=== PATIENT | female | born 1965 | race Caucasian/White ===

== ENCOUNTER 2018-01-09 20:39 | Emergency (ER) | payer OTHER ==
[~2018-01-09] VITALS: Ht 157.5 cm; Wt 60.0 kg
[~2018-01-09 20:39] MED LIST: BUPR150ER PO; CYCL10 PO; FAMO20 PO; HYDACE5 PO; IBUP800 PO; LORA.5 PO; MELO7.5 PO; NAPR550 PO; Nitrostat0.4 MG SL; TRAM50 PO; ZOLOFT PO
[2018-01-09] MEDS ORDERED: SERT100 PO (21:08)
== END 2018-01-09 21:56 | disposition home or self-care (01) ==
LOC: ER 20:39
DX: R07.81 Pleurodynia (principal); Z88.1 Allergy status to other antibiotic agents; Z88.8 Allergy status to other drugs, medicaments and biological substances; Z79.899 Other long term (current) drug therapy; F32.9 Major depressive disorder, single episode, unspecified; Z87.891 Personal history of nicotine dependence
CPT/HCPCS: 96372; 99283; J1885

== ENCOUNTER 2018-12-20 08:35 | Day surgery (SDC) | payer OTHER ==
[~2018-12-20] VITALS: Ht 160 cm; Wt 62.3 kg
[~2018-12-20 08:35] MED LIST changes: +SERT100 PO
[2018-12-20] MEDS ORDERED: Amitriptyline100 MG PO (09:48)
--- NOTE | 2018-12-20 10:23 | NUR ---
12/20/18 1023 Alex James LATE [id number] DR GOODWIN IN ROOM AND SITE CHECK DONE. DR GOODWIN INJECTED 10 ML OF BUPIVACAINE WITH EPI 0.5% 1;200,000. PATIENT TOLERATED PROCEDURE WELL. VSS
--- NOTE | 2018-12-20 10:51 | NUR ---
12/20/18 1051 Carlee Carlton SITTING IN RECLINER W/S.O. AT BEDSIDE. PT DRINKING COFFE AND EAQTING COOKIES. HAND UP ON PILLOW AND ICE PACK ON. DSG C/D/I DENIED PAIN AND NAUSEA
== END 2018-12-20 11:15 | disposition home or self-care (01) ==
LOC: ORSCSDS 08:35
PROVIDERS: Orthopaedic Surgery
PROC: 01N54ZZ Release Median Nerve, Percutaneous Endoscopic Approach (ICD-10-PCS; principal; 2018-12-20 09:45)
DX: G56.02 Carpal tunnel syndrome, left upper limb (principal); Z87.891 Personal history of nicotine dependence; Z79.899 Other long term (current) drug therapy
CPT/HCPCS: J0690; J2250; J3010; J7120

== ENCOUNTER 2025-01-08 05:44 | Day surgery (SDC) | payer OTHER ==
[~2025-01-08] VITALS: Ht 157.5 cm; Wt 70.7 kg
[2025-01-08] VITALS (15 sets, daily range): BP systolic 107–134; BP diastolic 66–95
[~2025-01-08 05:44] MED LIST changes: +AMIT50 PO
[2025-01-08] MEDS ORDERED: Lactated Ringer's 1,000 ML IV SCH (06:20)
[2025-01-08] MEDS ORDERED: CeFAZolin Sodium 2,000 MG in NS 100 ML IV SCH (06:20)
[2025-01-08] MEDS ORDERED: EUTHYROX88 MCG (06:40)
[2025-01-08] MEDS ORDERED: Tranexamic Acid 100 ML IV ONE (07:00)
[2025-01-08] MEDS ORDERED: Midazolam HCl 1MG / ML 2ML Vial ONE (07:02)
[2025-01-08] MEDS ORDERED: FentaNYL Citrate 50 MCG/ML 2 ML Injection ONE (07:02)
[2025-01-08] MEDS ORDERED: propofoL 20 ML IV ONE (07:03)
[2025-01-08] MEDS ORDERED: CeFAZolin Sodium 2,000 MG VIAL ONE (07:04)
[2025-01-08] MEDS ORDERED: Bupivacaine HCl 0.25% 30 ML Injection ONE ×2 (07:06)
[2025-01-08] MEDS ORDERED: EpiNEPhrine 1 MG/1 ML 1ML Vial ONE (07:07)
[2025-01-08] MEDS ORDERED: Bupivacaine 0.5% HCl 5 MG/ML 30MLVIAL ONE (07:17)
[2025-01-08] MEDS ORDERED: EPINEPhrine HCl 1 MG / ML 30ML Vial ONE (07:17)
--- NOTE | 2025-01-08 07:17 | NUR ---
Ambulatory in Day SurgeryPre-Op teaching done. Pt verbalizes understanding. History, Chart, Medications and Allergies reviewed before start of procedure.Patient confirms NPO status and agrees with scheduled surgery. Patient States Post-Procedure ride home has been arranged. Patient reports completing Chlorhexadine shower X2 prior to admission to hospital.
[2025-01-08] MEDS ORDERED: Rocuronium Bromide 10 MG/ML 5ML Injection IV ONE (07:35)
--- NOTE | 2025-01-08 07:38 | NUR ---
0725 TIME OUT FOR LEFT INTERSCALENE BLOCK W/ DR. OH. MB69=75-32% ON RA HR=90-93 BPM PT TOLERATED PROCEDURE WELL
[2025-01-08] MEDS ORDERED: Ondansetron HCl 2 MG / ML 2ML Vial ONE (07:53)
[2025-01-08] MEDS ORDERED: Dexamethasone Sod Phos 10 MG/ML 1ML VIAL ONE (07:53)
[2025-01-08] MEDS ORDERED: Tranexamic Acid 1000 MG/10 ML 10ML Vial (SDV) XX ONE (07:55)
[2025-01-08] MEDS ORDERED: Metoclopramide HCl 5MG / ML 2ML Vial IV PRN (08:20)
[2025-01-08] MEDS ORDERED: FentaNYL Citrate 50 MCG/ML 2 ML Injection IV PRN ×2 (08:20)
[2025-01-08] MEDS ORDERED: HYDROmorphone HCl/Pf 1MG SYR ONE (08:24)
[2025-01-08] MEDS ORDERED: Ketorolac Tromethamine 30mg Vial IV PRN (08:35)
[2025-01-08] MEDS ORDERED: OxyCODONE HCL 5 MG TAB PO PRN (10:05)
[2025-01-08] MEDS ORDERED: Metoclopramide HCl 5MG / ML 2ML Vial ONE (10:47)
[2025-01-08] MEDS ORDERED: Ketorolac Tromethamine 30mg Vial ONE (11:08)
--- NOTE | 2025-01-08 11:12 | NUR ---
PT PRESENTS VERY DROWSY, ROUSES TO VERBAL STIMULI. POLAR PACK TO LEFT SHOULDER. ABLE TO MOVE HER FINGERS, CMS INTACT. PT C/O PAIN 5/10 AT THIS TIME. TORADOL 30MG GIVEN IV. PT FAMILY AT BEDSIDE. PT DENIES NAUSEA AT THIS TIME. REPORT TO BLAKE PAUL
[2025-01-08] MEDS ORDERED: Droperidol 5 mg/2 ml Vial IV ONE (11:15)
--- NOTE | 2025-01-08 13:03 | NUR ---
DISCHARGE NOTE PT A&OX4, BREATHING RA, TOLERATING PO FLUIDS AND FOOD, PT STATES SHE HAS NO PAIN UPON DISCHARGE. PT ABLE TO MOVE FINGERS TO OPERATIVE LIMB, FINGER ARE PWD. Patient up to Ambulate independently. Gait steady. Discharge instructions reviewed with patient. Patient verbalizes understanding. Copy given to patient to take home. Dressing to procedure site clean, dry, intact with no visible drainage, swelling, erythema or bruising noted. POLAR PACK IN PLACE. Discharged via wheelchair to private car for ride home.
== END 2025-01-08 12:45 | disposition home or self-care (01) ==
LOC: ORSCMMR 05:44 → ORD 07:30 → ORSCMMR 07:30
PROVIDERS: Orthopaedic Surgery Sports Medicine
PROC: 0LM24ZZ Reattachment of Left Shoulder Tendon, Percutaneous Endoscopic Approach (ICD-10-PCS; principal; 2025-01-08 07:30)
PROC: 0PBB4ZZ Excision of Left Clavicle, Percutaneous Endoscopic Approach (ICD-10-PCS; principal; 2025-01-08 07:30)
PROC: 0RNK4ZZ Release Left Shoulder Joint, Percutaneous Endoscopic Approach (ICD-10-PCS; principal; 2025-01-08 07:30)
DX: S46.012A Strain of muscle(s) and tendon(s) of the rotator cuff of left shoulder, initial encounter (principal); M75.22 Bicipital tendinitis, left shoulder; M19.012 Primary osteoarthritis, left shoulder; E03.9 Hypothyroidism, unspecified; Z87.891 Personal history of nicotine dependence; Z79.899 Other long term (current) drug therapy; Z85.41 Personal history of malignant neoplasm of cervix uteri; V49.9XXD Car occupant (driver) (passenger) injured in unspecified traffic accident, subsequent encounter
CPT/HCPCS: C1713; J0171; J0690; J1100; J1171; J1885; J2250; J2405; J2704; J2765; J3010; J7120